=== PATIENT | female | born 1955 | race Asian ===

== ENCOUNTER 2017-05-28 06:14 | Day surgery (SDC) | payer OTHER ==
[2017-05-27 14:46] VITALS: BMI 28.0
[~2017-05-28] VITALS: Ht 152.4 cm; Wt 43.6 kg
[2017-05-28 06:25] VITALS: Ht 152.4 cm; Wt 43.6 kg
[2017-05-28] MEDS ORDERED: LIDOCAINE 2% (SDV) 5 ML INJ ONE (07:10)
[2017-05-28] MEDS ORDERED: MIDAZOLAM 1 MG/ML 2 ML INJ ONE (07:10)
[2017-05-28] MEDS ORDERED: PROPOFOL 20 ML ONE (07:10)
[2017-05-28] MEDS ORDERED: FAMOTIDINE 20 MG INJ ONE (07:11)
[2017-05-28] MEDS ORDERED: DEXAMETHASONE 4 MG/ML 1 ML INJ ONE (07:11)
[2017-05-28] MEDS ORDERED: ONDANSETRON 4 MG INJ ONE (07:11)
[2017-05-28] MEDS ORDERED: FENTAnyl 50 MCG/ML VIAL ONE ×2 (07:11→09:27)
[2017-05-28] MEDS ORDERED: CEFAZOLIN 1 GM INJ ONE (07:12)
[2017-05-28] MEDS ORDERED: POVIDONE IODINE 10% 28.4 GM OINT ONE (07:33)
[2017-05-28] MEDS ORDERED: BUPIVACAINE 0.5% (SDV) 30 ML INJ ONE (07:33)
--- NOTE | 2017-05-28 07:48 | HPN ---
Date/Time of Note Date/Time of Note DATE: 05/28/17 TIME: 07:48 Interval H&P Admission Note Pt. seen H&P reviewed: No system changes KEVIN MORELAND DPM May 28, 2017 07:48
[2017-05-28] MEDS ORDERED: EPHEDrine SULFATE 50 MG/5 ML SYG ONE (08:07)
[2017-05-28] MEDS ORDERED: ONDANSETRON 4 MG INJ IV PRN (09:00)
[2017-05-28] MEDS ORDERED: OXYCODONE/ACETAMINOPHEN (5/325) TAB PO PRN ×2 (09:00)
[2017-05-28] MEDS ORDERED: METOCLOPRAMIDE 10 MG INJ IV PRN (09:00)
[2017-05-28] MEDS ORDERED: FENTAnyl 50 MCG/ML VIAL IV PRN ×2 (09:00)
[2017-05-28] MEDS ORDERED: MEPERIDINE 25 MG INJ IV PRN (09:00)
[2017-05-28 10:26] VITALS: BP 151/64; PULSE 76; RESP 16
[2017-05-28 11:42] VITALS: BP 145/69; PULSE 83; RESP 18
--- NOTE | 2017-05-29 09:48 | PREOPHP ---
DATE OF ADMISSION: 05/28/2017 HISTORY OF PRESENT ILLNESS: The patient is being admitted to the hospital for elective foot surgery. Palliative treatment, unsuccessful. The patient has been explained surgery, complications, alternatives, and elected to have elective foot surgery. The patient is having pain on her right bunion. ALLERGIES: PATIENT DENIES ANY. MEDICATIONS: The patient is taking medicine for arthritis and high blood pressure. REVIEW OF SYSTEMS: Denies any history of heart, lung, liver, kidney, and thyroid. Denies diabetes. SOCIAL HISTORY: Denies smoking or alcohol. See any other pertinent history by Dr. Barrett. PHYSICAL EXAMINATION: LOWER EXTREMITY: DP and PT, equal and regular. NEUROLOGICAL: Negative for pathology. DERMATOLOGICAL: Negative for pathology. MUSCULOSKELETAL AND X-RAY FINDINGS: Hallux abductovalgus with bunion, right foot. FINAL DIAGNOSIS: Hallux abductovalgus with bunion, right foot. Dictated By: Madhu Ortega DPM /ania/ho /Document#: [id number] YARELI
--- NOTE | 2017-05-31 04:38 | OPR ---
OPERATIVE REPORT DATE OF OPERATION: 05/28/2017 PREOPERATIVE DIAGNOSIS: Hallux abductovalgus with bunion right foot. POSTOPERATIVE DIAGNOSIS: Hallux abductovalgus with bunion right foot. OPERATION PERFORMED: Osteotomy and bunionectomy with fixation on the 1st metatarsal right. SURGEON: Madhu Ortega DPM. OPERATIVE PROCEDURE: The patient was brought to the surgical suite and placed in the supine position. The patient had a sterile drape and prep and had a pneumatic cuff at the height of the ankle. The patient had a first incision of a dorsal longitudinal incision over the first metatarsophalangeal joint. Using sharp and blunt dissection the incision was carried deep. The head of the 1st metatarsal was freed of its attachments medially and dorsally, and the medial eminence was resected. A horizontal V osteotomy was then made going medial to lateral with the apex distal and the base proximal. The capital fragment of the first metatarsal was moved laterally impacted upon the shaft. A K-wire was placed across the osteotomy site and a screw was used to try and keep the area together. The bone broke a little bit and the area of the screw would not fixate. Next a staple was tried and that once again would not fixate, so a 0.4245 K- wire was then placed across the osteotomy site and tried to hold the area in place. The area was then rasped smooth and the preoperative condition had been relieved, but the area was not as stable as it would have been with a screw, and the area was coaptated with 3-0 Vicryl and the skin was coaptated using 5-0 nylon. The area was then injected with 0.5 percent Marcaine to prolong anesthesia and a dressing of half-inch Steri-Strips, Betadine ointment, 4x4s impregnated with Betadine solution was added and made into a semi-compressive cast. The patient tolerated surgery well and was returned to the recovery room in satisfactory condition. The postoperative orders included a postoperative equalizer boot as well as instructions to use crutches and to have the patient putting no weight on the total foot, just on the heel of the right foot. Dictated By: Madhu Ortega DPM /ania/suma /Document#: [id number] YARELI
== END 2017-05-28 11:42 | disposition home or self-care (01) ==
LOC: SDS 06:14
PROVIDERS: ATTEND Podiatrist
DX: M20.11 Hallux valgus (acquired), right foot (principal); M21.611 Bunion of right foot; I10 Essential (primary) hypertension
CPT/HCPCS: 28296; 88304; 88311; C1713; J0690; J1100; J2250; J2405; J3010; Z7512; Z7610

== ENCOUNTER 2018-04-25 09:51 | Day surgery (SDC) | END 2018-04-25 16:00 | disposition home or self-care (01) ==